=== PATIENT | female | born 1940 | race Two or more races ===

== ENCOUNTER 2022-01-13 15:47 | Outpatient (REF) | payer MEDICARE, OTHER, SELFPAY ==
[2022-01-13 17:17] LABS: Vitamin B12 325 pg/mL (200-900)
== END 2022-01-13 15:48 | disposition home or self-care (01) ==
LOC: HO.LAB 15:47
PROVIDERS: PCP Internal Medicine; Visit Provider Psychiatry & Neurology Neurology
DX: G30.9 Alzheimer's disease, unspecified (principal)
CPT/HCPCS: 36415; 82607

== ENCOUNTER 2023-02-09 15:38 | Outpatient (REF) | payer MEDICARE, OTHER, SELFPAY ==
[2023-02-09 16:50] LABS: Vitamin B12 568 pg/mL (200-900)
[2023-02-10 17:03] LABS: Homocysteine 11.7 umol/L (<10.4)
== END 2023-02-09 15:39 | disposition home or self-care (01) ==
LOC: HO.LAB 15:38
PROVIDERS: PCP Internal Medicine; Visit Provider Psychiatry & Neurology Neurology
DX: G30.9 Alzheimer's disease, unspecified (principal); F02.80 Dementia in other diseases classified elsewhere, unspecified severity, without behavioral disturbance, psychotic disturbance, mood disturbance, and anxiety
CPT/HCPCS: 36415; 82607; 82746; 83090

== ENCOUNTER 2023-03-26 09:23 | Outpatient (REF) | payer MEDICARE, OTHER, SELFPAY ==
--- NOTE | ~2023-03-26 | MR_ITS ---
EXAMINATION: MR BRAIN WITHOUT CONTRAST CLINICAL INFORMATION: Alzheimer's disease COMPARISON: None. TECHNIQUE: MRI of the brain was obtained using routine sequences without contrast. FINDINGS: No acute infarct. No acute intracranial hemorrhage or extra-axial fluid collection. Mild generalized parenchymal volume loss without lobar predilection. Patchy T2 FLAIR hyperintense foci in the subcortical and periventricular white matter, nonspecific but presumably mild chronic microangiopathy. No mass lesion, mass effect, or herniation pattern. Normal intracranial arterial and dural venous sinus flow voids. Partially empty sella. Lens extractions. Mild paranasal sinus mucosal thickening. Proteinaceous retention cyst in the left maxillary sinus alveolar recess. Normal marrow signal. MR/MR head/brain wo con IMPRESSION: 1. No acute intracranial abnormalities. 2. Mild global cerebral volume loss and mild chronic microangiopathic changes.
== END 2023-03-26 09:24 | disposition home or self-care (01) ==
LOC: HO.MRI 09:23
PROVIDERS: PCP Internal Medicine; Visit Provider Psychiatry & Neurology Neurology
DX: G30.9 Alzheimer's disease, unspecified (principal)
CPT/HCPCS: 70551